=== PATIENT | female | born 1980 | race Hispanic/Latino ===

== ENCOUNTER 2020-01-27 18:39 | Emergency (ER) | payer OTHER ==
[2020-01-27 19:52] LABS: Basophils % 0.9 % (0-1.3); Hematocrit 36.3 % (36.0-45.0); Lymphocytes % 29.7 % (15.3-44.8); MPV 8.6 fL (7.6-11.3); RBC Red Blood Cell Count 4.59 M/uL (3.86-4.86)
[2020-01-27 20:10] LABS: BUN Blood Urea Nitrogen 7 mg/dL (7-18); Bicarbonate 26 mmol/L (21-32); Glucose Level 88 mg/dL (74-106); Potassium 3.6 mmol/L (3.5-5.1); Sodium Level 140 mmol/L (136-145); Troponin (Emerg Dept Use Only) < 0.02 ng/mL (0.0-0.045)
--- NOTE | 2020-01-27 20:10 | RAD REPORT ---
EXAM DESCRIPTION: CT - Head Brain Wo Cont - 01/27/2020 7:49 pm CLINICAL HISTORY: HEADACHE COMPARISON: No comparisons TECHNIQUE: Axial 5 mm thick images of the head were obtained without IV contrast. All CT scans are performed using dose optimization technique as appropriate and may include automated exposure control or mA/KV adjustment according to patient size. FINDINGS: No intracranial hemorrhage, mass, edema or shift of mid-line structures. No acute infarcti on changes seen. No abnormal extra-axial fluid collections. Ventricles are normal. Mastoid air cells and visualized portions of the paranasal sinuses are clear. No acute bony findings. IMPRESSION: Negative non-contrast CT head examination.
--- NOTE | 2020-01-27 20:21 | EDPHYS ---
Physician Documentation [facility] Name: Evangelina Metcalf Age: 39 yrs Sex: Female : 1980 Arrival Date: 01/27/2020 Time: 18:52 Bed 28 Private MD: ED Physician Devan Cartagena HPI: 01/26 19:41 This 39 yrs old Female presents to ER via Ambulatory with complaints of High rn Blood Pressure, Numbness Of Arm, Headache. 19:41 The patient has elevated blood pressure and discovered this at home. Onset: The rn symptoms/episode began/occurred at an unknown time. Modifying factors:. Associated signs and symptoms: Pertinent positives: headache, Pertinent negatives: chest pain, lightheadedness, nausea, visual changes, vomiting, weakness. Severity of symptoms: At its worst the blood pressure was moderate, in the emergency department the blood pressure is improved. It is unknown whether or not the patient has had similar symptoms in the past. Reports just seen by PCP for first time, told BP was high and that her recent headaches likely from BP, given clonidine as emergency medication, pt does not have BP cuff at home, has been taking clonidine when has headache or doesn't feel well. Denies chest pain. + intermittent headache and had 5 min of left arm tingling around elbow so came in for eval. Currently asymptomatic. . 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 - Social history:: Smoking status: Patient denies any tobacco usage or history of. - Family history:: not pertinent. - Hospitalizations: : No recent hospitalization is reported. ROS: 19:41 Constitutional: Negative for fever, chills, and weight loss, Eyes: Negative for injury, rn pain, redness, and discharge, Neck: Negative for injury, pain, and swelling, Cardiovascular: Negative for chest pain, palpitations, and edema, Respiratory: Negative for shortness of breath, cough, wheezing, and pleuritic chest pain, Abdomen/GI: Negative for abdominal pain, nausea, vomiting, diarrhea, and constipation, MS/Extremity: Negative for injury and deformity, Skin: Negative for injury, rash, and discoloration, Neuro: Negative for weakness, and seizure. Exam: 19:41 Constitutional: This is a well developed, well nourished patient who is awake, alert, rn and in no acute distress. Head/Face: Normocephalic, atraumatic. Eyes: Pupils equal round and reactive to light, extra-ocular motions intact. Lids and lashes normal. Conjunctiva and sclera are non-icteric and not injected. Cornea within normal limits. Periorbital areas with no swelling, redness, or edema. Neck: Supple, full range of motion without nuchal rigidity. No Meningismus. Cardiovascular: Regular rate and rhythm. No pulse deficits. Respiratory: Equal bilateral breath sounds. No increased work of breathing, no retractions or nasal flaring. Abdomen/GI: soft, non-tender MS/ Extremity: Pulses equal, no cyanosis. Neurovascular intact. Full, normal range of motion. Equal circumference. Neuro: Awake and alert, GCS 15, oriented to person, place, time, and situation. Cranial nerves II-XII grossly intact. Motor strength 5/5 in all extremities. Sensory grossly intact. Cerebellar exam normal. 20:18 ECG was reviewed by the Attending Physician. rn Vital Signs: 19:00 BP 126 / 93; Pulse 97; Resp 16 S; Temp 98.7(O); Pulse Ox 99% on R/A; Weight 110.22 kg bb (R); Height 5 ft. 0 in. (152.40 cm) (R); Pain 0/10; 19:06 BP 143 / 98; Pulse 87; Resp 14; Pulse Ox 99% on R/A; Pain 3/10; ls4 20:10 BP 144 / 78; Pulse 84; Resp 16; Pulse Ox 99% on R/A; Pain 0/10; ls4 21:10 BP 138 / 84; Pulse 84; Resp 14; Pulse Ox 99% on R/A; ls4 22:10 BP 148 / 98; Pulse 86; Resp 14; Temp 98.6(O); Pulse Ox 99% on R/A; Pain 0/10; ls4 19:00 Body Mass Index 47.46 (110.22 kg, 152.40 cm) bb MDM: 19:12 Patient medically screened. rn 20:18 Differential diagnosis: Malignant HTN. Data reviewed: vital signs, nurses notes, flue dust laborer test result(s), EKG, radiologic studies, CT scan, and as a result, I will discharge patient. Counseling: I had a detailed discussion with the patient and/or guardian regarding: the historical points, exam findings, and any diagnostic results supporting the discharge/admit diagnosis, lab results, radiology results, the need for outpatient follow up, to return to the emergency department if symptoms worsen or persist or if there are any questions or concerns that arise at home. Special discussion: I discussed with the patient/guardian in detail that at this point there is no indication for admission to the hospital. It is understood, however, that if the symptoms persist or worsen the patient needs to return immediately for re-evaluation. Based on the history and exam findings, there is no indication for further emergent testing or inpatient evaluation. I discussed with the patient/guardian the need to see the primary care provider for further evaluation of the symptoms. 20:18 ED course: Recommend BP cuff at home since taking meds without checking numbers and can rn be dangerous. no acute findings on ct head/ECG. Neg trop. . 01/26 19:22 Order name: CBC with Diff; Complete Time: 20:18 rn 01/26 19:22 Order name: Basic Metabolic Panel; Complete Time: 20:18 rn 01/26 19:22 Order name: EKG; Complete Time: 19:23 rn 01/26 19:22 Order name: CT Head Brain wo Cont; Complete Time: 20:18 rn 01/26 19:22 Order name: Troponin (emerg Dept Use Only); Complete Time: 20:18 rn 01/26 19:29 Order name: XRAY Chest (1 view) rn 01/26 19:22 Order name: IV Start; Complete Time: 19:43 rn 01/26 19:22 Order name: EKG - Nurse/Tech; Complete Time: 20:12 rn EC:18 Rate is 83 beats/min. Rhythm is regular. QRS Brady is Normal. ND interval is normal. QRS rn interval is normal. QT interval is normal. No Q waves. T waves are Normal. No ST changes noted. Clinical impression: Normal ECG. Interpreted by me. Reviewed by me. Administered Medications: No medications were administered Disposition: 01/27/20 20:19 Discharged to Home. Impression: Hypertension, Paresthesia of skin. - Condition is Stable. - Discharge Instructions: General Headache Without Cause, Hypertension, Paresthesia. - Medication Reconciliation Form, Thank You Letter, Antibiotic Education, Prescription Opioid Use form. - Follow up: Private Physician; When: As needed; Reason: Recheck today's complaints, Re-evaluation by your physician. - Problem is new. - Symptoms have improved. Signatures: Dispatcher [employer] EDJeimy Wasserman RN RN Devan Araiza MD MD rn Stewart, Lisa, RN RN ls4 Corrections: (The following items were deleted from the chart) 20:57 20:19 01/27/2020 20:19 Discharged to Home. Impression: Hypertension; Paresthesia of ls4 skin. Condition is Stable. Forms are Medication Reconciliation Form, Thank You Letter, Antibiotic Education, Prescription Opioid Use. Follow up: Private Physician; When: As needed; Reason: Recheck today's complaints, Re-evaluation by your physician. Problem is new. Symptoms have improved. rn
--- NOTE | 2020-01-27 20:21 | ER ---
Nurse's Notes [facility] Name: Evangelina Metcalf Age: 39 yrs Sex: Female : 1980 Arrival Date: 01/27/2020 Time: 18:52 Bed 28 Private MD: Diagnosis: Hypertension;Paresthesia of skin Presentation: 01/26 19:00 Chief complaint: Patient states: she has started having high blood pressure readings bb saw her doc on Monday and was told she had to have several high readings before she could be officially diagnosed as having high blood pressure and was given Clonidine 0.1 mg to take as needed which she took today at 1750 tonight she started having a "heavy tingling feeling in my left arm" which is new for her. Coronavirus screen: The patient has NOT traveled to [place] in the past 14 days. Proceed with normal triage procedures. Ebola Screen: No symptoms or risks identified at this time. Initial Sepsis Screen: Does the patient meet any 2 criteria? No. Patient's initial sepsis screen is negative. Does the patient have a suspected source of infection? No. Patient's initial sepsis screen is negative. Risk Assessment: Do you want to hurt yourself or someone else? Patient reports no desire to harm self or others. Onset of symptoms was January 27, 2020. 19:00 Method Of Arrival: Ambulatory bb 19:00 Acuity: JAVON 3 Triage Assessment: 19:04 Headache History: The patient has had previous headaches and this one is similar to bb previous episodes. 19:07 General: Appears in no apparent distress. Behavior is calm, cooperative. Pain: ls4 Complains of pain in top of head and forehead Pain currently is 5 out of 10 on a pain scale. Pain began gradually, Alleviated by medications, Aggravated by Also complains of no other associated symptoms. 19:07 Neuro: Level of Consciousness is awake, alert, obeys commands, Oriented to person, ls4 place, time, situation, Feather Maker are equal bilaterally Moves all extremities. Gait is steady, Speech is normal, Facial symmetry appears normal, Pupils are PERRLA, paresthesias in left arm Reports paresthesias in left arm. Cardiovascular: Denies chest pain, diaphoresis, fatigue, lightheadedness, nausea, palpitations, shortness of breath, syncope, vomiting, Capillary refill < 3 seconds Clubbing of nail beds is absent Patient's skin is warm and dry. Respiratory: No deficits noted. GI: Abdomen is non-distended, obese, Bowel sounds present X 4 quads. Abd is soft and non tender X 4 quads. : No deficits noted. Derm: No deficits noted. Musculoskeletal: No deficits noted. 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 - Social history:: Smoking status: Patient denies any tobacco usage or history of. - Family history:: not pertinent. - Hospitalizations: : No recent hospitalization is reported. Screenin:06 Abuse screen: Denies threats or abuse. Denies injuries from another. Nutritional ls4 screening: No deficits noted. Tuberculosis screening: No symptoms or risk factors identified. Fall Risk None identified. 19:06 VAN Screening: Arm Drift: Patient shows no arm weakness. Patient is VAN negative. ls4 Assessment: 20:00 Reassessment: Patient appears in no apparent distress at this time. No changes from ls4 previously documented assessment. Patient and/or family updated on plan of care and expected duration. Pain level reassessed. Patient is alert, oriented x 3, equal unlabored respirations, skin warm/dry/pink. 21:00 Reassessment: Patient appears in no apparent distress at this time. Patient and/or ls4 family updated on plan of care and expected duration. Pain level reassessed. Patient is alert, oriented x 3, equal unlabored respirations, skin warm/dry/pink. 22:00 Reassessment: Patient appears in no apparent distress at this time. No changes from ls4 previously documented assessment. Patient and/or family updated on plan of care and expected duration. Pain level reassessed. Patient is alert, oriented x 3, equal unlabored respirations, skin warm/dry/pink. Vital Signs: 19:00 BP 126 / 93; Pulse 97; Resp 16 S; Temp 98.7(O); Pulse Ox 99% on R/A; Weight 110.22 kg bb (R); Height 5 ft. 0 in. (152.40 cm) (R); Pain 0/10; 19:06 BP 143 / 98; Pulse 87; Resp 14; Pulse Ox 99% on R/A; Pain 3/10; ls4 20:10 BP 144 / 78; Pulse 84; Resp 16; Pulse Ox 99% on R/A; Pain 0/10; ls4 21:10 BP 138 / 84; Pulse 84; Resp 14; Pulse Ox 99% on R/A; ls4 22:10 BP 148 / 98; Pulse 86; Resp 14; Temp 98.6(O); Pulse Ox 99% on R/A; Pain 0/10; ls4 19:00 Body Mass Index 47.46 (110.22 kg, 152.40 cm) bb ED Course: 18:52 Patient arrived in ED. mr 19:04 Triage completed. bb 19:04 Arm band placed on Patient placed in an exam room, on a stretcher, on pulse oximetry. bb 19:06 Patient has correct armband on for positive identification. Bed in low position. Call ls4 light in reach. Side rails up X 1. ekg monitor tech on. Pulse ox on. NIBP on. Verbal reassurance given. Diet: Patient is NPO. 19:06 No provider procedures requiring assistance completed. ls4 19:12 Devan Cartagena MD is Attending Physician. rn 19:36 Violeta Okeefe, SAMMY is Primary Nurse. ls4 19:43 Initial lab(s) drawn, by wv, sent to lab. Inserted saline lock: 20 gauge in right lt1 antecubital area, using aseptic technique. 19:48 XRAY Chest (1 view) In Process Unspecified. EDMS 19:49 CT Head Brain wo Cont In Process Unspecified. EDMS 20:53 IV discontinued, intact, bleeding controlled, No redness/swelling at site. Pressure ls4 dressing applied. Administered Medications: No medications were administered Outcome: 20:19 Discharge ordered by . rn 20:56 Discharged to home ambulatory, with family. ls4 20:56 Condition: stable 20:56 Discharge instructions given to patient, family, Instructed on discharge instructions, follow up and referral plans. medication usage, Demonstrated understanding of instructions, follow-up care, medications. 20:57 Patient left the ED. ls4 Signatures: Dispatcher [employer] EDCielo Wade mr LulaJeimy, RN RN bb Devan Cartagena MD MD rn Stewart, Lisa, RN RN ls4 Lakisha García RN RN ca1 Sagr[place] lt1 Corrections: (The following items were deleted from the chart) 19:04 18:55 Chief complaint: ca1 bb
--- NOTE | 2020-01-27 20:52 | RAD REPORT ---
EXAM DESCRIPTION: RAD - Chest Single View - 01/27/2020 7:48 pm CLINICAL HISTORY: hypertension, left arm tingling COMPARISON: No comparisons TECHNIQUE: AP portable chest image was obtained 01/27/2020 7:48 pm . FINDINGS: Lungs are underinflated. No peripheral mass or consolidation. Heart and vasculature are no rmal. No measurable pleural effusion and no pneumothorax. No acute bony abnormality seen. No acute ao rtic findings suspected. IMPRESSION: No acute cardiopulmonary process.
[2020-01-27 22:30] VITALS: TEMP 98.7; O2SAT 99
[2020-01-27 22:31] VITALS: BP 143/98
--- NOTE | 2020-01-28 05:55 | EKG ---
Test Date: 2020-01-27 Test Time: 20:08:44 Collections Director: SENIA MEASUREMENT RESULTS: Intervals: Rate: 83 [place]: 154 QRSD: 78 QT: 376 QTc: 441 [place]: P: 32 [place]: 154 QRS: 16 T: 41 INTERPRETIVE STATEMENTS: Normal sinus rhythm Normal ECG No previous ECG available for comparison Electronically Signed On 01-28-20 05:54:34 [employer] by Samy Snowden
== END 2020-01-27 20:57 | disposition home or self-care (01) ==
LOC: ER 18:39
DX: I10 Essential (primary) hypertension (principal); R20.2 Paresthesia of skin
CPT/HCPCS: 36415; 70450; 71045; 80048; 84484; 85025; 93005; 99284

== ENCOUNTER 2023-05-05 21:15 | Emergency (ER) | payer OTHER ==
--- OUTSIDE RECORDS SUMMARY | 2023-05-05 21:18 | XMS REPORT | Continuity of Care Document ---
:1980 Author Organization [facility] t Address [address] [facility] [address] [place] [place] [address] Care Team Providers Name Role Phone Isa Mejía Primary Care Physician KEMI VALENTIN Attending Clinician Unavailable [facility], [facility] Nurse Visit Fadi Attending Clinician UnavailBlanka Cody MD Attending Clinician BLANKA PARIKH Attending Clinician Unavailable Vince Velazquez MD Attending Clinician Doctor Unassigned, [place] Attending Clinician Unavailable SAGRARIO GALEANO Attending Clinician Unavailable SAGRARIO GALEANO Attending Clinician Unavailable ASHWINI JERNIGAN Attending Clinician Unavailable Roya Dahl MD Attending Clinician [phone] Ashwini Jernigan MD Attending Clinician Manju Tillman Attending Clinician Unavailable Kemi Valentin MD Attending Clinician Sanjeev Harding CRNA Attending Clinician Jatin Martinez MD Attending Clinician [phone] Only, Adc Test Attending Clinician Unavailable AINSLEY EDGE Attending Clinician Unavailable Ainsley Edge MD Attending Clinician Gramm Ying PERALES Attending Clinician KEMI VALENTIN Admitting Clinician Unavailable Manju Tillman Admitting Clinician Unavailable Kemi Valentin MD Admitting Clinician Payers Payer Name Policy Type Policy Number Effective Date Expiration Date Denise NICOLAS [id number] 2016 HEALTH 00:00:00 Problems Condition Condition Condition Status Onset Resolution Last Treating Co mments Source Name Details Category Date Date Treatment Clinician Date Anal skin Anal skin Disease Active Overview: [facility] tag tag 3-25 Formattin ity of 00:00: g of this [place] 00 note Medical might be Branch different from the original. Added automatic ally from request for surgery [id number] Morbid Morbid Disease Active [facility] obesity obesity 1-12 [place] of [place] mass index 00 Me dical of of Branch 40.0-49.9 40.0-49.9 Hemorrhoid Hemorrhoid Disease Active 2020-11 Overview : Univers s, s, 1-11 Formattin ity of unspecifie unspecifie 00:00: g of this [place] d d 00 note Medical hemorrhoid hemorrhoid might be Branch type type different from the original. Added automatic ally from request for surgery [id number] Allergies, Adverse Reactions, Alerts Allergy Allergy Status Severity Reaction(s) Onset Inactive Treating Comm ents Source Name Type Date Date Clinician No Known DA Active [facility] [place] NO KNOWN Drug Active Univers ALLERGIE Class ity of S [facility] Social History Social Habit Start Date Stop Date Quantity Comments Source Exposure to 2023-02-24 2023-03-06 Not sure [facility] SARS-CoV-2 00:00:00 10:08:00 [facility] [place] Tobacco use and 2021-10-07 2021-10-07 Smokeless tobacco Un iversity of exposure 00:00:00 00:00:00 non-user [facility] Sex Assigned At [birth year] Universit y of 00:00:00 00:00:00 [facility] Smoking Status Start Date Stop Date Source Never smoked tobacco [facility] Medications Ordered Filled Start Stop Current Ordering Indication Dosage Frequency Signature Comments Components Source Medication Medication Date Date Medication? Clinician (SIG) Name Name hydrocortis 2021-11 Yes [id number] Apply to Univers one 2.5 % 2-21 area(s) 2 ity o f cream 00:00: (two) [place] 00 times Medical daily as Branch needed for Rash. Stop when clear, restart if rash returns. clotrimazol 2021-11 Yes [id number] Apply to Univers e 1 % 2-21 area(s) 2 ity of topical 00:00: (two) [place] cream 00 times Medical daily as Branch needed for Rash. Mix with hydrocorti sone cream in 1:1 ratio. Lactic Acid 2021-11 Yes [id number] Apply to Univers Crea 2-21 area(s) ity of 00:00: daily. Medical Branch hydrocortis 2021-11 Yes [id number] Apply to Univers one 2.5 % 2-21 area(s) 2 ity o f cream 00:00: (two) [place] 00 times Medical daily as Branch needed for Rash. Stop when clear, restart if rash returns. clotrimazol 2021-11 Yes [id number] Apply to Univers e 1 % 2-21 area(s) 2 ity of topical 00:00: (two) [place] cream 00 times Medical daily as Branch needed for Rash. Mix with hydrocorti sone cream in 1:1 ratio. Lactic Acid 2021-11 Yes [id number] Apply to Univers Crea 2-21 area(s) ity of 00:00: daily. Medical Branch hydrocortis 2021-11 Yes [id number] Apply to Univers one 2.5 % 2-21 area(s) 2 ity o f cream 00:00: (two) [place] 00 times Medical daily as Branch needed for Rash. Stop when clear, restart if rash returns. clotrimazol 2021-11 Yes [id number] Apply to Univers e 1 % 2-21 area(s) 2 ity of topical 00:00: (two) [place] cream 00 times Medical daily as Branch needed for Rash. Mix with hydrocorti sone cream in 1:1 ratio. Lactic Acid 2021-11 Yes [id number] Apply to Univers Crea 2-21 area(s) ity of 00:00: daily. Medical Branch hydrocortis 2021-11 Yes [id number] Apply to Univers one 2.5 % 2-21 area(s) 2 ity o f cream 00:00: (two) [place] 00 times Medical daily as Branch needed for Rash. Stop when clear, restart if rash returns. clotrimazol 2021-11 Yes [id number] Apply to Univers e 1 % 2-21 area(s) 2 ity of topical 00:00: (two) [place] cream 00 times Medical daily as Branch needed for Rash. Mix with hydrocorti sone cream in 1:1 ratio. Lactic Acid 2021-11 Yes [id number] Apply to Univers Crea 2-21 area(s) ity of 00:00: daily. Medical Branch hydrocortis 2021-11 Yes [id number] Apply to Univers one 2.5 % 2-21 area(s) 2 ity o f cream 00:00: (two) [place] 00 times Medical daily as Branch needed for Rash. Stop when clear, restart if rash returns. clotrimazol 2021-11 Yes [id number] Apply to Univers e 1 % 2-21 area(s) 2 ity of topical 00:00: (two) [place] cream 00 times Medical daily as Branch needed for Rash. Mix with hydrocorti sone cream in 1:1 ratio. Lactic Acid 2021-11 Yes [id number] Apply to Univers Crea 2-21 area(s) ity of 00:00: daily. Medical Branch hydrocortis 2021-11 Yes [id number] Apply to Univers one 2.5 % 2-21 area(s) 2 ity o f cream 00:00: (two) [place] 00 times Medical daily as Branch needed for Rash. Stop when clear, restart if rash returns. clotrimazol 2021-11 Yes [id number] Apply to Univers e 1 % 2-21 area(s) 2 ity of topical 00:00: (two) [place] cream 00 times Medical daily as Branch needed for Rash. Mix with hydrocorti sone cream in 1:1 ratio. Lactic Acid 2021-11 Yes [id number] Apply to Univers Crea 2-21 area(s) ity of 00:00: daily. Medical Branch hydrocortis 2021-11 Yes [id number] Apply to Univers one 2.5 % 2-21 area(s) 2 ity o f cream 00:00: (two) [place] 00 times Medical daily as Branch needed for Rash. Stop when clear, restart if rash returns. clotrimazol 2021-11 Yes [id number] Apply to Univers e 1 % 2-21 area(s) 2 ity of topical 00:00: (two) [place] cream 00 times Medical daily as Branch needed for Rash. Mix with hydrocorti sone cream in 1:1 ratio. Lactic Acid 2021-11 Yes [id number] Apply to Univers Crea 2-21 area(s) ity of 00:00: daily. Medical Branch hydrocortis 2021-11 Yes [id number] Apply to Univers one 2.5 % 2-21 area(s) 2 ity o f cream 00:00: (two) [place] 00 times Medical daily as Branch needed for Rash. Stop when clear, restart if rash returns. clotrimazol 2021-11 Yes [id number] Apply to Univers e 1 % 2-21 area(s) 2 ity of topical 00:00: (two) [place] cream 00 times Medical daily as Branch needed for Rash. Mix with hydrocorti sone cream in 1:1 ratio. Lactic Acid 2021-11 Yes [id number] Apply to Univers Crea 2-21 area(s) ity of 00:00: daily. Medical Branch hydrocortis 2021-11 Yes [id number] Apply to Univers one 2.5 % 2-21 area(s) 2 ity o f cream 00:00: (two) [place] 00 times Medical daily as Branch needed for Rash. Stop when clear, restart if rash returns. clotrimazol 2021-11 Yes [id number] Apply to Univers e 1 % 2-21 area(s) 2 ity of topical 00:00: (two) [place] cream 00 times Medical daily as Branch needed for Rash. Mix with hydrocorti sone cream in 1:1 ratio. Lactic Acid 2021-11 Yes [id number] Apply to Univers Crea 2-21 area(s) ity of 00:00: daily. Medical Branch losartan 50 Yes losartan Un nila mg tablet 3-30 50 mg ity of 18:00: tablet [place] 53 Take 1 Medical tablet Branch every day by oral route for 30 days. metoprolol Yes metoprolol U nivers succinate 3-30 succinate ity o f XL 25 mg 24 18:00: ER 25 mg [place] hr tablet 53 tablet,ext Medi sandy ended Branch release 24 hr TAKE 1 TABLET EVERY DAY BY ORAL ROUTE FOR 30 DAYS. phentermine Yes phentermin Univers 37.5 mg 3-30 e 37.5 mg ity of tablet 18:00: tablet [place] 53 TAKE 1 Medical TABLET Branch EVERY DAY BY ORAL ROUTE FOR 30 DAYS. traZODone Yes trazodone Uni vers 50 mg 3-30 50 mg ity of tablet 18:00: tablet [place] 53 TAKE 1 Medical TABLET BY Branch MOUTH EVERY DAY losartan 50 0 Yes losartan Un nila mg tablet 3-30 50 mg ity of 18:00: tablet [place] 53 Take 1 Medical tablet Branch every day by oral route for 30 days. metoprolol Yes metoprolol U nivers succinate 3-30 succinate ity o f XL 25 mg 24 18:00: ER 25 mg [place] hr tablet 53 tablet,ext Medi sandy ended Branch release 24 hr TAKE 1 TABLET EVERY DAY BY ORAL ROUTE FOR 30 DAYS. phentermine Yes phentermin Univers 37.5 mg 3-30 e 37.5 mg ity of tablet 18:00: tablet [place] 53 TAKE 1 Medical TABLET Branch EVERY DAY BY ORAL ROUTE FOR 30 DAYS. traZODone Yes trazodone Uni vers 50 mg 3-30 50 mg ity of tablet 18:00: tablet [place] 53 TAKE 1 Medical TABLET BY Branch MOUTH EVERY DAY losartan 50 0 Yes losartan Un nila mg tablet 3-30 50 mg ity of 18:00: tablet [place] 53 Take 1 Medical tablet Branch every day by oral route for 30 days. metoprolol Yes metoprolol U nivers succinate 3-30 succinate ity o f XL 25 mg 24 18:00: ER 25 mg [place] hr tablet 53 tablet,ext Medi sandy ended Branch release 24 hr TAKE 1 TABLET EVERY DAY BY ORAL ROUTE FOR 30 DAYS. phentermine Yes phentermin Univers 37.5 mg 3-30 e 37.5 mg ity of tablet 18:00: tablet [place] 53 TAKE 1 Medical TABLET Branch EVERY DAY BY ORAL ROUTE FOR 30 DAYS. traZODone Yes trazodone Uni vers 50 mg 3-30 50 mg ity of tablet 18:00: tablet [place] 53 TAKE 1 Medical TABLET BY Branch MOUTH EVERY DAY losartan 50 0 Yes losartan Un nila mg tablet 3-30 50 mg ity of 18:00: tablet [place] 53 Take 1 Medical tablet Branch every day by oral route for 30 days. metoprolol Yes metoprolol U nivers succinate 3-30 succinate ity o f XL 25 mg 24 18:00: ER 25 mg [place] hr tablet 53 tablet,ext Medi sandy ended Branch release 24 hr TAKE 1 TABLET EVERY DAY BY ORAL ROUTE FOR 30 DAYS. phentermine Yes phentermin Univers 37.5 mg 3-30 e 37.5 mg ity of tablet 18:00: tablet [place] 53 TAKE 1 Medical TABLET Branch EVERY DAY BY ORAL ROUTE FOR 30 DAYS. traZODone Yes trazodone Uni vers 50 mg 3-30 50 mg ity of tablet 18:00: tablet [place] 53 TAKE 1 Medical TABLET BY Branch MOUTH EVERY DAY losartan 50 Yes losartan Un nila mg tablet 3-30 50 mg ity of 18:00: tablet [place] 53 Take 1 Medical tablet Branch every day by oral route for 30 days. metoprolol Yes metoprolol U nivers succinate 3-30 succinate ity o f XL 25 mg 24 18:00: ER 25 mg [place] hr tablet 53 tablet,ext Medi sandy ended Branch release 24 hr TAKE 1 TABLET EVERY DAY BY ORAL ROUTE FOR 30 DAYS. phentermine Yes phentermin Univers 37.5 mg 3-30 e 37.5 mg ity of tablet 18:00: tablet [place] 53 TAKE 1 Medical TABLET Branch EVERY DAY BY ORAL ROUTE FOR 30 DAYS. traZODone Yes trazodone Uni vers 50 mg 3-30 50 mg ity of tablet 18:00: tablet [place] 53 TAKE 1 Medical TABLET BY Branch MOUTH EVERY DAY losartan 50 Yes losartan Un nila mg tablet 3-30 50 mg ity of 18:00: tablet [place] 53 Take 1 Medical tablet Branch every day by oral route for 30 days. metoprolol Yes metoprolol U nivers succinate 3-30 succinate ity o f XL 25 mg 24 18:00: ER 25 mg [place] hr tablet 53 tablet,ext Medi sandy ended Branch release 24 hr TAKE 1 TABLET EVERY DAY BY ORAL ROUTE FOR 30 DAYS. phentermine Yes phentermin Univers 37.5 mg 3-30 e 37.5 mg ity of tablet 18:00: tablet [place] 53 TAKE 1 Medical TABLET Branch EVERY DAY BY ORAL ROUTE FOR 30 DAYS. traZODone Yes trazodone Uni vers 50 mg 3-30 50 mg ity of tablet 18:00: tablet [place] 53 TAKE 1 Medical TABLET BY Branch MOUTH EVERY DAY losartan 50 0 Yes losartan Un nila mg tablet 3-30 50 mg ity of 18:00: tablet [place] 53 Take 1 Medical tablet Branch every day by oral route for 30 days. metoprolol Yes metoprolol U nivers succinate 3-30 succinate ity o f XL 25 mg 24 18:00: ER 25 mg [place] hr tablet 53 tablet,ext Medi sandy ended Branch release 24 hr TAKE 1 TABLET EVERY DAY BY ORAL ROUTE FOR 30 DAYS. phentermine Yes phentermin Univers 37.5 mg 3-30 e 37.5 mg ity of tablet 18:00: tablet [place] 53 TAKE 1 Medical TABLET Branch EVERY DAY BY ORAL ROUTE FOR 30 DAYS. traZODone Yes trazodone Uni vers 50 mg 3-30 50 mg ity of tablet 18:00: tablet [place] 53 TAKE 1 Medical TABLET BY Branch MOUTH EVERY DAY losartan 50 0 Yes losartan Un nila mg tablet 3-30 50 mg ity of 18:00: tablet [place] 53 Take 1 Medical tablet Branch every day by oral route for 30 days. metoprolol Yes metoprolol U nivers succinate 3-30 succinate ity o f XL 25 mg 24 18:00: ER 25 mg [place] hr tablet 53 tablet,ext Medi sandy ended Branch release 24 hr TAKE 1 TABLET EVERY DAY BY ORAL ROUTE FOR 30 DAYS. phentermine Yes phentermin Univers 37.5 mg 3-30 e 37.5 mg ity of tablet 18:00: tablet [place] 53 TAKE 1 Medical TABLET Branch EVERY DAY BY ORAL ROUTE FOR 30 DAYS. traZODone Yes trazodone Uni vers 50 mg 3-30 50 mg ity of tablet 18:00: tablet [place] 53 TAKE 1 Medical TABLET BY Branch MOUTH EVERY DAY losartan 50 0 Yes losartan Un nil[place] mg tablet 3-30 50 mg ity of 18:00: tablet [place] 53 Take 1 Medical tablet Branch every day by oral route for 30 days. metoprolol 0 Yes metoprolol U nivers succinate 3-30 succinate ity o f XL 25 mg 24 18:00: ER 25 mg [place] hr tablet 53 tablet,ext Medi sandy ended Branch release 24 hr TAKE 1 TABLET EVERY DAY BY ORAL ROUTE FOR 30 DAYS. phentermine Yes phentermin Univers 37.5 mg 3-30 e 37.5 mg ity of tablet 18:00: tablet [place] 53 TAKE 1 Medical TABLET Branch EVERY DAY BY ORAL ROUTE FOR 30 DAYS. traZODone Yes trazodone Uni vers 50 mg 3-30 50 mg ity of tablet 18:00: tablet [place] 53 TAKE 1 Medical TABLET BY Branch MOUTH EVERY DAY losartan 50 0 Yes losartan Un nila mg tablet 3-30 50 mg ity of 18:00: tablet [place] 53 Take 1 Medical tablet Branch every day by oral route for 30 days. metoprolol Yes metoprolol U nivers succinate 3-30 succinate ity o f XL 25 mg 24 18:00: ER 25 mg [place] hr tablet 53 tablet,ext Medi sandy ended Branch release 24 hr TAKE 1 TABLET EVERY DAY BY ORAL ROUTE FOR 30 DAYS. phentermine Yes phentermin Univers 37.5 mg 3-30 e 37.5 mg ity of tablet 18:00: tablet [place] 53 TAKE 1 Medical TABLET Branch EVERY DAY BY ORAL ROUTE FOR 30 DAYS. traZODone Yes trazodone Uni vers 50 mg 3-30 50 mg ity of tablet 18:00: tablet [place] 53 TAKE 1 Medical TABLET BY Branch MOUTH EVERY DAY losartan 50 0 Yes losartan Un nila mg tablet 3-30 50 mg ity of 18:00: tablet [place] 53 Take 1 Medical tablet Branch every day by oral route for 30 days. metoprolol Yes metoprolol U nivers succinate 3-30 succinate ity o f XL 25 mg 24 18:00: ER 25 mg [place] hr tablet 53 tablet,ext Medi sandy ended Branch release 24 hr TAKE 1 TABLET EVERY DAY BY ORAL ROUTE FOR 30 DAYS. phentermine 2022-0 Yes phentermin Univers 37.5 mg 3-30 e 37.5 mg ity of tablet 18:00: tablet [place] 53 TAKE 1 Medical TABLET Branch EVERY DAY BY ORAL ROUTE FOR 30 DAYS. traZODone 2-0 Yes trazodone Uni vers 50 mg 3-30 50 mg ity of tablet 18:00: tablet [place] 53 TAKE 1 Medical TABLET BY Branch MOUTH EVERY DAY ibuprofen 2021-0 Yes [id number] 600mg Take 1 Univers 600 mg 3-30 tablet by ity of tablet 00:00: mouth [place] 00 every 6 Medical (six) Branch hours as needed for Pain (scale 4-6). ibuprofen 2-0 Yes [id number] 600mg Take 1 Univers 600 mg 3-30 tablet by ity of tablet 00:00: mouth [place] 00 every 6 Medical (six) Branch hours as needed for Pain (scale 4-6). ibuprofen 2021-0 Yes [id number] 600mg Take 1 Univers 600 mg 3-30 tablet by ity of tablet 00:00: mouth [place] 00 every 6 Medical (six) Branch hours as needed for Pain (scale 4-6). ibuprofen 2021-0 Yes [id number] 600mg Take 1 Univers 600 mg 3-30 tablet by ity of tablet 00:00: mouth [place] 00 every 6 Medical (six) Branch hours as needed for Pain (scale 4-6). ibuprofen 2021-0 Yes [id number] 600mg Take 1 Univers 600 mg 3-30 tablet by ity of tablet 00:00: mouth [place] 00 every 6 Medical (six) Branch hours as needed for Pain (scale 4-6). ibuprofen 2-0 Yes [id number] 600mg Take 1 Univers 600 mg 3-30 tablet by ity of tablet 00:00: mouth [place] 00 every 6 Medical (six) Branch hours as needed for Pain (scale 4-6). ibuprofen 2-0 Yes [id number] 600mg Take 1 Univers 600 mg 3-30 tablet by ity of tablet 00:00: mouth [place] 00 every 6 Medical (six) Branch hours as needed for Pain (scale 4-6). ibuprofen 2-0 Yes [id number] 600mg Take 1 Univers 600 mg 3-30 tablet by ity of tablet 00:00: mouth [place] 00 every 6 Medical (six) Branch hours as needed for Pain (scale 4-6). ibuprofen 2022-0 Yes [id number] 600mg Take 1 [facility] 600 mg 3-30 tablet by ity of tablet 00:00: mouth [place] 00 every 6 Medical (six) Branch hours as needed for Pain (scale 4-6). ibuprofen 2021-0 Yes [id number] 600mg Take 1 [facility] 600 mg 3-30 tablet by ity of tablet 00:00: mouth [place] 00 every 6 Medical (six) Branch hours as needed for Pain (scale 4-6). ibuprofen 2021-0 Yes [id number] 600mg Take 1 [facility] 600 mg 3-30 tablet by ity of tablet 00:00: mouth [place] 00 every 6 Medical (six) Branch hours as needed for Pain (scale 4-6). acetaminoph 2022- No [id number] 650mg Take 2 Univers en 3-30 03-31 tablets by ity of (TYLENOL) 00:00: 04:59 mouth [place] 325 mg 00 :00 every 6 Medical tablet (six) Branch hours as needed for Pain (scale 1-3). acetaminoph 2022- No [id number] 650mg Take 2 Univers en 3-30 03-31 tablets by ity of (TYLENOL) 00:00: 04:59 mouth [place] 325 mg 00 :00 every 6 Medical tablet (six) Branch hours as needed for Pain (scale 1-3). acetaminoph 2022- No [id number] 650mg Take 2 Univers en 3-30 03-31 tablets by ity of (TYLENOL) 00:00: 04:59 mouth [place] 325 mg 00 :00 every 6 Medical tablet (six) Branch hours as needed for Pain (scale 1-3). acetaminoph 2022- No [id number] 650mg Take 2 Univers en 3-30 03-31 tablets by ity of (TYLENOL) 00:00: 04:59 mouth [place] 325 mg 00 :00 every 6 Medical tablet (six) Branch hours as needed for Pain (scale 1-3). acetaminoph 2022- No [id number] 650mg Take 2 Univers en 3-30 03-31 tablets by ity of (TYLENOL) 00:00: 04:59 mouth [place] 325 mg 00 :00 every 6 Medical tablet (six) Branch hours as needed for Pain (scale 1-3). acetaminoph 2021-0 2022- No [id number] 650mg Take 2 Univers en 3-30 03-31 tablets by ity of (TYLENOL) 00:00: 04:59 mouth [place] 325 mg 00 :00 every 6 Medical tablet (six) Branch hours as needed for Pain (scale 1-3). acetaminoph 2021-0 2022- No [id number] 650mg Take 2 Univers en 3-30 03-31 tablets by ity of (TYLENOL) 00:00: 04:59 mouth [place] 325 mg 00 :00 every 6 Medical tablet (six) Branch hours as needed for Pain (scale 1-3). ibuprofen 2021-0 Yes [id number] 600mg Take 1 U nivers 600 mg 1-04 tablet by ity of tablet 00:00: mouth [place] 00 every 6 Medical (six) Branch hours as needed for Pain (scale 4-6). docusate 2022-0 Yes [id number] 100mg Take 1 Un nila (COLACE) 1-04 capsule by ity o f 100 mg 00:00: mouth 2 [place] capsule 00 (two) Medical times Branch daily. psyllium 2022-0 Yes [id number] 1{packe Take 1 Univers 3.4 gram 1-04 t} Packet by ity of packet 00:00: mouth 2 [place] 00 (two) Medical times Branch daily. ibuprofen 2022-0 Yes [id number] 600mg Take 1 U nivers 600 mg 1-04 tablet by ity of tablet 00:00: mouth [place] 00 every 6 Medical (six) Branch hours as needed for Pain (scale 4-6). docusate 2022-0 Yes [id number] 100mg Take 1 Un nila (COLACE) 1-04 capsule by ity o f 100 mg 00:00: mouth 2 [place] capsule 00 (two) Medical times Branch daily. psyllium 2022-0 Yes [id number] 1{packe Take 1 Univers 3.4 gram 1-04 t} Packet by ity of packet 00:00: mouth 2 [place] 00 (two) Medical times Branch daily. ibuprofen 2022-0 Yes [id number] 600mg Take 1 U nivers 600 mg 1-04 tablet by ity of tablet 00:00: mouth [place] 00 every 6 Medical (six) Branch hours as needed for Pain (scale 4-6). docusate 2022-0 Yes [id number] 100mg Take 1 Un nila (COLACE) 1-04 capsule by ity o f 100 mg 00:00: mouth 2 [place] capsule 00 (two) Medical times Branch daily. psyllium 2022-0 Yes [id number] 1{packe Take 1 Univers 3.4 gram 1-04 t} Packet by ity of packet 00:00: mouth 2 [place] 00 (two) Medical times Branch daily. ibuprofen 2022-0 Yes [id number] 600mg Take 1 U nivers 600 mg 1-04 tablet by ity of tablet 00:00: mouth [place] 00 every 6 Medical (six) Branch hours as needed for Pain (scale 4-6). docusate 2022-0 Yes [id number] 100mg Take 1 Un nila (COLACE) 1-04 capsule by ity o f 100 mg 00:00: mouth 2 [place] capsule 00 (two) Medical times Branch daily. psyllium 2022-0 Yes [id number] 1{packe Take 1 Univers 3.4 gram 1-04 t} Packet by ity of packet 00:00: mouth 2 [place] 00 (two) Medical times Branch daily. ibuprofen 2022-0 Yes [id number] 600mg Take 1 U nivers 600 mg 1-04 tablet by ity of tablet 00:00: mouth [place] 00 every 6 Medical (six) Branch hours as needed for Pain (scale 4-6). docusate 2022-0 Yes [id number] 100mg Take 1 Un nila (COLACE) 1-04 capsule by ity o f 100 mg 00:00: mouth 2 [place] capsule 00 (two) Medical times Branch daily. psyllium 2022-0 Yes [id number] 1{packe Take 1 Univers 3.4 gram 1-04 t} Packet by ity of packet 00:00: mouth 2 [place] 00 (two) Medical times Branch daily. ibuprofen 2022-0 Yes [id number] 600mg Take 1 U nivers 600 mg 1-04 tablet by ity of tablet 00:00: mouth [place] 00 every 6 Medical (six) Branch hours as needed for Pain (scale 4-6). docusate 2022-0 Yes [id number] 100mg Take 1 Un nila (COLACE) 1-04 capsule by ity o f 100 mg 00:00: mouth 2 [place] capsule 00 (two) Medical times Branch daily. psyllium 2022-0 Yes [id number] 1{packe Take 1 Univers 3.4 gram 1-04 t} Packet by ity of packet 00:00: mouth 2 [place] 00 (two) Medical times Branch daily. ibuprofen 2022-0 Yes [id number] 600mg Take 1 U nivers 600 mg 1-04 tablet by ity of tablet 00:00: mouth [place] 00 every 6 Medical (six) Branch hours as needed for Pain (scale 4-6). docusate 2022-0 Yes [id number] 100mg Take 1 Un nila (COLACE) 1-04 capsule by ity o f 100 mg 00:00: mouth 2 [place] capsule 00 (two) Medical times Branch daily. psyllium 2022-0 Yes [id number] 1{packe Take 1 Univers 3.4 gram 1-04 t} Packet by ity of packet 00:00: mouth 2 [place] (two) Medical times Branch daily. ibuprofen 2022-0 Yes [id number] 600mg Take 1 U nivers 600 mg 1-04 tablet by ity of tablet 00:00: mouth [place] 00 every 6 Medical (six) Branch hours as needed for Pain (scale 4-6). docusate 2022-0 Yes [id number] 100mg Take 1 Un nila (COLACE) 1-04 capsule by ity o f 100 mg 00:00: mouth 2 [place] capsule 00 (two) Medical times Branch daily. psyllium 2022-0 Yes [id number] 1{packe Take 1 Univers 3.4 gram 1-04 t} Packet by ity of packet 00:00: mouth 2 [place] 00 (two) Medical times Branch daily. ibuprofen 2022-0 Yes [id number] 600mg Take 1 U nivers 600 mg 1-04 tablet by ity of tablet 00:00: mouth [place] 00 every 6 Medical (six) Branch hours as needed for Pain (scale 4-6). docusate 2022-0 Yes [id number] 100mg Take 1 Un nila (COLACE) 1-04 capsule by ity o f 100 mg 00:00: mouth 2 [place] capsule 00 (two) Medical times Branch daily. psyllium 2022-0 Yes [id number] 1{packe Take 1 Univers 3.4 gram 1-04 t} Packet by ity of packet 00:00: mouth 2 [place] 00 (two) Medical times Branch daily. ibuprofen 2-0 Yes [id number] 600mg Take 1 U nivers 600 mg 1-04 tablet by ity of tablet 00:00: mouth [place] 00 every 6 Medical (six) Branch hours as needed for Pain (scale 4-6). docusate 2022-0 Yes [id number] 100mg Take 1 Un nila (COLACE) 1-04 capsule by ity o f 100 mg 00:00: mouth 2 [place] capsule 00 (two) Medical times Branch daily. psyllium 2022-0 Yes [id number] 1{packe Take 1 Univers 3.4 gram 1-04 t} Packet by ity of packet 00:00: mouth 2 [place] 00 (two) Medical times Branch daily. ibuprofen 2021-0 Yes [id number] 600mg Take 1 U nivers 600 mg 1-04 tablet by ity of tablet 00:00: mouth [place] 00 every 6 Medical (six) Branch hours as needed for Pain (scale 4-6). docusate 2021-0 Yes [id number] 100mg Take 1 Un nila (COLACE) 1-04 capsule by ity o f 100 mg 00:00: mouth 2 [place] capsule 00 (two) Medical times Branch daily. psyllium 2-0 Yes [id number] 1{packe Take 1 Univers 3.4 gram 1-04 t} Packet by ity of packet 00:00: mouth 2 [place] 00 (two) Medical times Branch daily. acetaminoph 2021-0 2022- No [id number] 650mg Take 2 Univers en 1-04 01-05 tablets by ity of (TYLENOL) 00:00: 05:59 mouth [place] 325 mg 00 :00 every 6 Medical tablet (six) Branch hours as needed for Pain (scale 1-3). acetaminoph 2021-0 2022- No [id number] 650mg Take 2 Univers en 1-04 01-05 tablets by ity of (TYLENOL) 00:00: 05:59 mouth [place] 325 mg 00 :00 every 6 Medical tablet (six) Branch hours as needed for Pain (scale 1-3). acetaminoph 2022022- No [id number] 650mg Take 2 Univers en -02 25-05 tablets by ity of (TYLENOL) 00:00: 05:59 mouth [place] 325 mg 00 :00 every 6 Medical tablet (six) Branch hours as needed for Pain (scale 1-3). acetaminoph 2022- No [id number] 650mg Take 2 Univers en -02 25-05 tablets by ity of (TYLENOL) 00:00: 05:59 mouth [place] 325 mg 00 :00 every 6 Medical tablet (six) Branch hours as needed for Pain (scale 1-3). acetaminoph 2022- No [id number] 650mg Take 2 Univers en 11-30-05 tablets by ity of (TYLENOL) 00:00: 05:59 mouth [place] 325 mg 00 :00 every 6 Medical tablet (six) Branch hours as needed for Pain (scale 1-3). Vital Signs Vital Name Observation Time Observation Value Comments Source Systolic blood 2022-04-14 16:04:00 111 mm[Hg] [facility]iver [facility] Diastolic blood 2022-04-14 16:04:00 74 [facility]Hg[facility] 2022-04-14 16:04:00 74 /min [facility] Body temperature 2022-04-14 16:04:00 36.61 Myesha [facility] Body weight 2022-04-14 16:04:00 109.589 kg [facility] BMI 2022-04-14 16:04:00 47.18 kg/m2 [facility] Oxygen saturation in 2022-04-14 16:04:00 98 /min [facility] Arterial blood by [facility] Pulse oximetry Branch Procedures Procedure Date / Time Performed Performing Clinician [facility] nakul [facility] PATIENT 2023-02-27 15:10:11 Doctor Unassigned, No [facility] [place] FINANCIAL POLICY Name Medical Branch REFERRAL- 2022-09-20 05:01:00 Doctor Unassigned, No [facility] [place] REQUEST/RESPONSE Name Medical Branch Encounters Start End Encounter Admission Attending Care Care Encounter Source Date/Time Date/Time Type Type Clinicians Facility Department ID 2022-02-18 Outpatient Dannielle VALENTIN [facility] KAYLA [id number] Univers 10:55:56 KEMI randle [facility] [place] 2023-03-06 2023-03-06 Nurse Jason Flores Nurse Visit Fadi [facility] 1.2.840.114 [id number] Univers 10:30:00 10:45:00 Visit Blanka Parikh MULTISPEC 350.1.13.1 0 [place] [id number] [address] [facility] 2023-03-06 2023-03-06 Outpatient R MEGHAN [facility] [id number] Univers 10:30:00 10:30:00 BLANKA randle [facility] [place] 2023-02-27 2023-02-27 [facility] [id number] Univers 10:30:00 11:20:07 BLANKA randle [facility] [place] 2023-02-27 2023-02-27 Office Vince Velazquez [facility] 1.2.840.114 [id number] Univers 10:30:00 11:20:07 Visit Blanka Parikh MULTISPEC 350.1.13.1 0 ity of [place] 4.2.7.2.686 [facility] [place] [id number] [address] [facility] 2023-02-27 2023-02-27 Orders Doctor SAMUEL 1..840.114 [id number] Univers 00:00:00 00:00:00 Only Unassigned, JEREMY 350.1.13.10 ity of [place] [facility] 4.2.7.2.686 Rafael [id number] [place] [address] Branch 2023-01-03 2023-01-03 Outpatient R SAGRARIO GALEANO [facility] [id number] Univers 10:40:00 10:47:05 SAGRARIO GALEANO [facility] [place] 2023-01-03 2023-01-03 Office Sagrario Galeano [facility] 1.2.840.114 [id number] Univers 10:40:00 10:47:05 Visit MULTISPEC 350.1.13.10 ity of [place] 4.2.7.2.686 [facility] [id number] [address] [facility] 2022-11-16 2022-11-16 Outpatient R DELON [facility] [id number] Univers 10:30:00 14:40:36 ASHWINI randle o f [facility] 2022-11-16 2022-11-16 Office Nabila Roya Michelle SANCHEZ 1.2.840.114 [id number] Univers 10:30:00 14:40:36 Visit Ashwini Jernigan [facility] 350.1.13.10 ity of [facility] [place] [id number] [facility] 027 Branch 2022-09-20 2022-09-20 Orders Doctor LIZZIE 1.2.840.114 [id number] Univers 00:00:00 00:00:00 Only Unassigned, JEREMY 350.1.13.10 ity of [facility] 4.2.7.2.686 Rafael as [id number] [facility] 009 Branch 2022-07-15 2022-07-15 [id number] 09:25:00 09:25:00 [place] [address] [facility] 2022-04-14 2022-04-14 Outpatient Dannielle VALENTIN [facility] [id number] Univers 10:45:00 11:09:26 KEMI randle [facility] [place] 2022-04-14 2022-04-14 Office [facility] 1.2.106.572 [id number] Univers 10:45:00 11:09:26 Visit Kemi ART 350.1.13.10 i ty [facility] [place] [id number] Id dical [address] 2022-03-24 2022-03-24 Outpatient Dannielle VALENTIN [facility] [id number] Univers 11:30:00 11:30:00 KEMI randle [facility] [place] 2022-02-23 2022-02-23 Outpatient Dannielle VALENTIN [facility] KAYLA [id number] Univers 12:30:00 18:00:00 KEMI randle [facility] [place] 2022-02-23 2022-02-23 [place] 1.2.840.114 [id number] Univers 12:30:00 18:00:00 Encounter Kemi ART 350.1.13.10 [place] of [place] [id number] [facility] 071 Branch 2022-02-23 2022-02-23 Anesthesia Sanjeev Harding [facility] 1.2.840.11 [id number] Univers 15:33:00 16:42:00 Event Juan Jatin ALYSSATYREE 35 0.1.13.10 ity of [place] [id number] [facility] [address] [place] 2022-02-23 2022-02-23 Surgery [facility] 1.2.227.219 [id number] Univers 14:40:00 16:15:00 Kemi ART 350.1.13.10 i ty [address] [facility] 4.[place] [id number] [facility] [address] [place] 2022-02-21 2022-02-21 Laboratory Only, Adc Test [facility] 1.2.840. 114 [id number] Univers 08:30:00 08:45:00 Only Kemi Valentin 350.1.13.10 [place] [id number] [address] 2022-02-21 2022-02-21 Outpatient R MYKE [facility] [id number] Univers 08:30:00 08:30:00 KEMI randle of [facility] 2022-02-17 2022-02-17 [facility] 1.2.561.490 [id number] Univers 11:30:00 11:49:18 Visit Kemi ART 350.1.13.10 i ty [place] [id number] [address] 2022-02-17 2022-02-17 Outpatient R MYKE [facility] [id number] Univers 11:30:00 11:49:18 KEMI randle [facility] [place] 2022-02-17 2022-02-17 [facility] [id number] Univers 11:30:00 11:49:18 KEMI randle [facility] [place] 2022-02-17 2022-02-17 Outpatient [facility] [id number] Univers 11:30:00 11:30:00 KEMI randle [facility] [place] 2021-12-23 2021-12-23 [facility] [id number] Univers 13:30:00 14:09:58 AINSLEY randle [facility] [place] 2021-12-23 2021-12-23 [facility] 1.2.840.114 [id number] Univers 13:30:00 14:09:58 Visit Ainsley SHAHTYREE 350.1.13.10 i ty [place] [id number] Id dical [address] 2021-12-23 2021-12-23 Outpatient R [facility] [id number] Univers 11:30:00 11:30:00 KEMI randle [facility] [place] 2021-11-30 2021-11-30 [facility] KAYLA [id number] Univers 06:48:00 11:13:00 KEMI randle [facility] [place] 2021-11-30 2021-11-30 [facility] 1.2.840.114 [id number] Univers 06:48:00 11:13:00 Encounter Kemi KAELYN 350.1.13.10 it[place] [id number] [facility] 071 Branch 2021-11-30 2021-11-30 Surgery [facility] 1.2.307.772 [id number] Univers 07:30:00 09:40:00 Kemi ART 350.1.13.10 i ty [place] [id number] [facility] 020 Branch 2021-11-29 2021-11-29 Laboratory Only, Adc Test [facility] 1.2.840. 114 [id number] Univers 11:15:00 11:30:00 Only Kemi Valentin 350.1.13.10 ity [place] [id number] [facility] [address] 2021-11-29 2021-11-29 Outpatient [facility] [id number] Univers 11:15:00 11:15:00 KEMI randle [facility] [place] 2021-11-29 2021-11-29 Orders Doctor LIZZIE 1.2.840.114 [id number] Univers 00:00:00 00:00:00 Only Unassigned, JEREMY 350.1.13.10 ity of [facility] 4.2.7.2.686 [place] as [id number] [facility] [address] [place] 2021-10-07 2021-10-07 Office Valentin [facility] 1.2.073.800 [id number] Univers 14:28:05 14:56:08 Visit Kemi ART 350.1.13.10 i ty [facility] [place] [id number] Id dical NAL 188 [facility] 2021-10-07 2021-10-07 Outpatient R MYKE [facility] [id number] Univers 14:00:00 14:56:08 KEMI michelle [facility] [place] 2021-10-07 2021-10-07 Prep For Andrew [facility] 1.2.840.114 [id number] Univers 00:00:00 00:00:00 Surgery Ying SHAHTYREE 350.1.13.10 ity [facility] [place]2.[place] [id number] Id dical NAL 204 [facility] Results Test Description Test Time Test Comments Results Result Comments Source UR HCG QUAL 2022-07-13 16:19:00 Test Item Value Reference Range Interpretation Comme nts UR HCG QUAL (test code = HCGQLU) NEGATIVE 1. Very dilute urine specimens, as indicated by a lowspecific gravity, may not contain rep resentative levels ofhCG. 2. False negative results may occur when the levels of hCGare below the sensitivity level of the test. If is st ill suspected, a first morningurine sp ecimen should be collected 48 ho urs later andtested. BASIC METABOLIC [id number] 15:55:00 Test Item Value Reference Range Interpretation Comments SODIUM (test code = NA) 142 mEq/L 135-145 N POTASSIUM (test code = K) 4.1 mEq/L 3.5-5.0 N CHLORIDE (test code = CL) 107 mEq/L 100-115 N CARBON DIOXIDE (test code = CO2) 23 mEq/L 22-31 N ANION GAP (test code = GAP) 15.90 10-20 N GLUCOSE (test code = GLU) 83 mg/dL 65-110 N BLOOD UREA NITROGEN (test code = 13 mg/dL 7-18 N BUN) GLOMERULAR FILTRATION RATE (test 135 ml/min >60 N code = GFR) CREATININE (test code = CREAT) 0.5 mg/dL 0.5-1.0 N CALCIUM (test code = CA) 8.5 mg/dL 8.4-10.2 N CBC W/AUTO [id number] 15:40:00 Test Item Value Reference Range Interpretation Comments WHITE BLOOD CELL (test code = WBC) 10.1 K/mm3 6.5-12.3 N RED BLOOD CELL (test code = RBC) 4.65 M/mm3 3.51-4.69 N HEMOGLOBIN (test code = HGB) 11.7 g/dL 10.1-13.8 N HEMATOCRIT (test code = HCT) 38.3 % 32.5-41.8 N MEAN CELL VOLUME (test code = MCV) 82.4 fL 84.6-96.6 L MEAN CELL HGB (test code = MCH) 25.2 pg 27.3-33.9 L MEAN CELL HGB CONCETRATION (test 30.5 gm/dL 32.0-34.2 L code = MCHC) RED CELL DISTRIBUTION WIDTH (test 16.0 % 12.2-16.3 N code = RDW) PLATELET COUNT (test code = PLT) 361 K/mm3 134-363 N MEAN PLATELET VOLUME (test code = 11.1 fL 9.2-12.7 N MPV) NEUTROPHIL % (test code = NT%) 67.4 % 57.9-77.3 N LYMPHOCYTE % (test code = LY%) 24.4 % 14.5-29.7 N MONOCYTE % (test code = MO%) 6.1 % 3.6-10.2 N EOSINOPHIL % (test code = EO%) 1.3 % 0.0-3.0 N BASOPHIL % (test code = BA%) 0.5 % 0.1-0.9 N NEUTROPHIL # (test code = NT#) 6.8 K/mm3 LYMPHOCYTE # (test code = LY#) 2.5 K/mm3 MONOCYTE # (test code = MO#) 0.6 K/mm3 EOSINOPHIL # (test code = EO#) 0.13 K/mm3 BASOPHIL # (test code = BA#) 0.1 K/mm3 RBC MORPHOLOGY REQUIRED (test code NORMAL NORMAL = RBCM) PLATELET MORPHOLOGY REQUIRED (test NORMAL NORMAL code = PLTMR) COVID 19 Asymptomatic IH [id number] 13:02:00 Test Item Value Reference Range Interpretation Comments COVID 19 NEGATIVE NEGATIVE This test has b een Asymptomatic IH AG authorize d only for the (test code = detection ofpro teins from COVNONPUIAG) SARS-CoV-2, not for any other viruses orpathogens. Ne gative results should be treated as presumptive andconfirmed wi th a molecular assay , if necessary for patientmanageme nt. Negative result s do not rule out COVID- 19 andshould not b e used as the sole basis for treatment orpat ient management deci sions, including infec tion controldecision s. Negative result s should be considered i n thecontext of a patient's recent exposure s, history and thepresence of clinical signs and symptoms consis tent withCOVID-19. T his test has not been FD A cleared or approved; th e test hasbeen authori zed by FDA under an Emerge ncy Use Authorization(E UA) for use by edin portillo certified under the CLIA thatmeet the re quirements to perform mode rate, high or waivedcomple xity tests. This melanie t is authorized for use at thePoint of Car e (POC), i.e., in patien t care settingsoperati ng under a CLIA Certificat e of Waiver, Certifi tish ofCompliance, o r Certificate of Accreditation. This test is only authori catherine for the duration of thedeclaration that circumstances e xist justifying theauthorizatio n of emergency use o f in vitro diagnostic test sfor detection and/o r diagnosis of CO VID-19 under Scdokzn79 4(b)(1) of the Act, 21 U.S .C. 360bbb-3(b)(1), unless theauthorizatio n is terminated or r evoked sooner. Notes Date/Time Note Provider Source 2022-07-15 13:16:00-00:00 [facility] ([facility]) full op note report#:[id number] report status: signed date:07/15/22 time: 131 patient: travis mota unit #: [id number] room/bed: : 80 age: 42 sex: f attend: keyur tillman md adm dt: 07/15/22 author: manju tillman md * all edits or amendments must be made on the [employer]/computer document * operative report start date: 07/15/22 start time: 1200 pre-procedure diagnosis: bilateral venous insufficiency right leg varicose veins with pain post-procedure diagnosis: bilateral venous insufficiency right leg varicose veins with pain procedures performed: 1. bilateral gsv radiofrequency ablation 2. right leg stab phlebectomy (<20) technique/procedure: see below primary surgeon: dr. manju tillman special education assistant(s): dr. cruz anesthesia: general anesthesia operative findings: right leg varicosities complications: none estimated blood loss in ml's: 10 cc specimens removed/altered: none implant(s): none free text op notes free text op notes: the patient was brought to the operating room, p laced in the supine position, and intubated by the anesthesia team. preoperati ve antibiotics were administered. the legs and groin were prepped an d draped in the usual sterile fashion. a preprocedure timeout was performed. ultrasound-guided access of the right gr eat saphenous vein was obtained at the mid-calf using a micropunctu re needle and 0.018 in wire. a maegan was made at the puncture site, and a 7-tamazight sheath was placed over the wire into the right great saphenous vein. the rf catheter introduced through the sheath. under ultrasound guidance, the rf ablation catheter was brought to the saphenofemoral junction and pulled back 3 cm. tumescent anesthesia was infiltrated around the right great saphenous vein, creating a 1 cm halo around the vein. rf ablation of the right great saphenous vein was completed in the usual fashion. ultrasound-guided access of the left great saphe nous vein was obtained at the mid-calf using a micropunctu re needle and 0.018 in wire. a maegan was made at the puncture site, and a 7-tamazight sheath was placed over the wire into the left great saphenous vein. the rf catheter introduced through the sheath. under ultrasound guidance, the rf ablation catheter was brought to the saphenofemoral junction and pulled back 3 cm. tumescent anesthesia was infiltrated around the left great saphenous vein, c reating a 1 cm halo around the vein. rf ablation of the left great saphenous vein was completed in t he usual fashion. large varicosities in the [facility] lateral calf down had been marked preprocedure. these were phlebectomized us ing standard phlebectomy technique and hemostats as well as phlebectomy hook. once the phlebectomy w as completed, all phlebectomy sites were closed with steri-strips. a compressi on bandage was placed on the foot to the high thigh bilateally. the patient was then awakened, extubated, and br ought to recovery in stable condition. all the sponge, lap, and instrument c ounts were correct at the conclusion of the procedure. electronically signed by manju tillman md on 07/15/22 at 1320 [facility] #:[id number] end of report 2022-07-13 12:50:00-00:00 [id number] [facility] [address] [place], [place] [address] PATIENT NAME: TRAVIS MOTA ADMIT DATE: ACCOUNT NO: [id number] ROOM NO: AGE: 42 SEX: F ADMITTING PHYSICIAN: ATTENDING PHYSICIAN: Manju Tillman MD Order: [id number] Test Reason : PRE- OP Test Date/Time Stamp: MonJul 13 2022 12:50:18 Blood Pressure : / mmHG Vent. Rate : 074 BPM Atrial Rate : 074 BPM P-R Int : 136 ms QRS Dur : 076 ms QT Int : 404 ms P-R-T Axes : 019 014 039 degree s QTc Int : 448 ms Normal sinus rhythm Normal ECG No previous ECGs available Confirmed by MAINE ALVARES ([id number]) on 022 6:05:14 PM Referred By: Manju Tillman Confirmed by:MAURY ALVARES at 1805 PATIENT NAME: TRAVIS MOTA ACCOUNT #: [id number]
[2023-05-05] MEDS ORDERED: KETOROLAC 30 MG/ML INJ ONE (21:38)
[2023-05-05] MEDS ORDERED: ONDANSETRON 4 MG (ODT) TAB ONE (21:39)
--- NOTE | 2023-05-05 22:35 | RAD REPORT ---
EXAM DESCRIPTION: RAD - Shoulder Right 2 View - 05/05/2023 10:13 pm CLINICAL HISTORY: Right shoulder pain FINDINGS: No fracture or dislocation is seen. No significant bone or joint abnormality noted
--- NOTE | 2023-05-05 22:37 | RAD REPORT ---
EXAM DESCRIPTION: RAD - Hip Right 2 View - 05/05/2023 10:13 pm CLINICAL HISTORY: Right hip pain FINDINGS: No fracture or dislocation is seen. Mild osteoarthritis If the patient has experienced trauma and continues to have symptoms of an occult fracture then MRI w ould be recommended 3.3 centimeter calcification left pelvis may represent a calcified uterine fibroid or adnexal mass. P elvic ultrasound recommended
--- NOTE | 2023-05-05 22:53 | EDPHYS ---
Physician Documentation [facility] Name: Evangelina Metcalf Age: 42 yrs Sex: Female : 1980 Arrival Date: 05/05/2023 Time: 21:15 Bed 15 Private MD: ED Physician Pollo Loving HPI: 05/05 21:27 This 42 yrs old Female presents to ER via EMS with complaints of Fall Injury. bs3 21:27 42-year-old female history of hypertension, morbid obesity presents with right shoulder bs3 and right hip pain she was walking in [employer] when she slipped and fell landing on her right side of her body she denies head injury loss of consciousness no numbness tingling or weakness she was able to walk afterwards and take a few steps her pain is moderate intensity since the pain got bad she does have associated nausea but no vomiting no chest pain no shortness of breath no abdominal pain. 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 - Social history:: Smoking status: Patient denies any tobacco usage or history of. ROS: 21:27 Constitutional: Negative for fever, chills bs3 21:27 All other systems are negative. Exam: 21:27 Constitutional: This is a well developed, well nourished patient who is awake, alert, bs3 and in no acute distress. Head/Face: Normocephalic, atraumatic. Eyes: Pupils equal round and reactive to light, extra-ocular motions intact. Lids and lashes normal. ENT: mmm, no posterior phyarngeal erythema Neck: Trachea midline, no thyromegaly, no neck stiffness Chest/axilla: Normal chest wall appearance and motion. Nontender with no deformity. No lesions are appreciated. Cardiovascular: Regular rate and rhythm with a normal S1 and S2. symmetric pulses in upper extremities Respiratory: Lungs have equal breath sounds bilaterally, clear to auscultation, no respiratory distress Abdomen/GI: Soft, non-tender, no rebound or guarding Back: No spinal tenderness. No costovertebral tenderness. Full range of motion. Skin: Warm, dry with normal turgor. Normal color with no rashes, no lesions, and no evidence of cellulitis. MS/ Extremity: She has tenderness over her right AC joint no significant effusion full range of motion passively she has mild pain to palpation of her right hip she has pain in the posterior upper part of her right leg when lifting it off the bed she has no pain with logrolling or axial loading Vital Signs: 21:17 BP 133 / 84; Pulse 104; Resp 16; Temp 97.9(O); Pulse Ox 99% ; Weight 110.22 kg; Height kd3 5 ft. 0 in. ; 21:52 BP 120 / 85; Pulse 111; Resp 16; Pulse Ox 100% on R/A; kd3 22:54 BP 114 / 88; Pulse 106; Resp 19; Pulse Ox 100% on R/A; kd3 21:17 Body Mass Index 47.46 (110.22 kg, 152.4 cm) kd3 MDM: 21:20 Patient medically screened. bs3 21:27 Data reviewed: vital signs, nurses notes. ED course: Possible AC joint separation less bs3 likely to be dislocation or fracture possible hip contusion doubt fracture will treat pain will get x-rays and reassess. 22:51 Independent interpretation of the following test(s) in the Emergency Department X-Ray: bs3 My interpretation is No acute fracture or dislocation. 22:52 ED course: CT negative for acute pathology there is a cystic structure in her left bs3 pelvis not consistent with her trauma advised outpatient follow-up with primary care possible ultrasound for more clarification return per cautions given patient given copy of her x-ray report. 05/05 21:25 Order name: Shoulder Right (2 View) XRAY; Complete Time: 22:51 bs3 05/05 21:25 Order name: Hip Right 2 View XRAY; Complete Time: 22:51 bs3 Administered Medications: 21:52 Drug: Ondansetron PO 8 mg Route: PO; kd3 22:55 Follow up: Response: No adverse reaction; Nausea is decreased kd3 21:52 Drug: Ketorolac IM 30 mg Route: IM; Site: right deltoid; kd3 22:55 Follow up: Response: No adverse reaction; Pain is decreased kd3 Disposition Summary: 05/05/23 22:53 Discharge Ordered Location: Home bs3 Problem: new bs3 Symptoms: have improved bs3 Condition: Stable bs3 Diagnosis - Pain in hip bs3 - Contusion of shoulder bs3 Followup: bs3 - With: Private Physician - When: 1 week - Reason: Re-evaluation by your physician Discharge Instructions: - Discharge Summary Sheet bs3 - Contusion, [id number] bs3 Forms: - Family Work Release ds4 - Medication Reconciliation Form bs3 - Thank You Letter bs3 - Antibiotic Education bs3 - Prescription Opioid Use bs3 Signatures: Dispatcher [employer] Liz Reese RN RN kd3 Pollo Loving MD MD bs3
--- NOTE | 2023-05-05 22:53 | ER ---
Nurse's Notes [facility] Name: Evangelina Metcalf Age: 42 yrs Sex: Female : 1980 Arrival Date: 05/05/2023 Time: 21:15 Bed 15 Private MD: Diagnosis: Pain in hip;Contusion of shoulder Presentation: 05/05 21:17 Chief complaint: EMS states: She was shopping at [employer] and slipped and fell on the wet kd3 floor. She fell to the right side and is complaining of right hip and right shoulder pain. She started getting nauseous prior to putting her in the ambulance but has not vomited. She did not hit her head or loose consciousness. She is not on blood thinners. Coronavirus screen: Vaccine status: Patient reports being unvaccinated. Ebola Screen: No symptoms or risks identified at this time. Initial Sepsis Screen: Does the patient meet any 2 criteria? No. Patient's initial sepsis screen is negative. Does the patient have a suspected source of infection? No. Patient's initial sepsis screen is negative. Risk Assessment: Do you want to hurt yourself or someone else? Patient reports no desire to harm self or others. Onset of symptoms was May 05, 2023. 21:17 Method Of Arrival: EMS: [facility] kd3 21:17 Acuity: JAVON 3 kd3 Triage Assessment: 21:21 General: Appears uncomfortable, Behavior is calm, cooperative. Pain: Complains of pain kd3 in anterior aspect of right shoulder. 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 - Social history:: Smoking status: Patient denies any tobacco usage or history of. Screenin:53 [facility] ED Fall Risk Assessment (Adult) History of falling in the last 3 months, kd3 including since admission Yes- single mechanical fall (1 pt) Confusion or Disorientation No (0 pts) Intoxicated or Sedated No (0 pts) Impaired Gait No (0 pts) Mobility Assist Device Used No (0 pt) Altered Elimination No (0 pt) Score/Fall Risk Level 0 - 2 = Low Risk Maintained a safe environment. Abuse screen: Denies threats or abuse. Denies injuries from another. Nutritional screening: No deficits noted. Tuberculosis screening: No symptoms or risk factors identified. Assessment: 21:53 General: Appears uncomfortable, Behavior is calm, cooperative. Pain: Complains of pain kd3 in right hip and right arm and anterior aspect of right shoulder. Neuro: Level of Consciousness is awake, alert, obeys commands, Oriented to person, place, time, situation. Respiratory: Airway is patent Trachea midline Respiratory effort is even, unlabored, Respiratory pattern is regular, symmetrical. Vital Signs: 21:17 BP 133 / 84; Pulse 104; Resp 16; Temp 97.9(O); Pulse Ox 99% ; Weight 110.22 kg; Height kd3 5 ft. 0 in. ; 21:52 BP 120 / 85; Pulse 111; Resp 16; Pulse Ox 100% on R/A; kd3 22:54 BP 114 / 88; Pulse 106; Resp 19; Pulse Ox 100% on R/A; kd3 21:17 Body Mass Index 47.46 (110.22 kg, 152.4 cm) kd3 ED Course: 21:16 Patient arrived in ED. kd3 21:20 Pollo Loving MD is Attending Physician. bs3 21:21 Triage completed. kd3 21:21 Arm band placed on left wrist. kd3 21:52 Liz Blanca, SAMMY is Primary Nurse. kd3 22:14 Shoulder Right (2 View) XRAY In Process Unspecified. EDMS 22:14 Hip Right 2 View XRAY In Process Unspecified. EDMS 23:22 Patient has correct armband on for positive identification. kd3 23:22 No provider procedures requiring assistance completed. Patient did not have IV access kd3 during this emergency room visit. Administered Medications: 21:52 Drug: Ondansetron PO 8 mg Route: PO; kd3 22:55 Follow up: Response: No adverse reaction; Nausea is decreased kd3 21:52 Drug: Ketorolac IM 30 mg Route: IM; Site: right deltoid; kd3 22:55 Follow up: Response: No adverse reaction; Pain is decreased kd3 Medication: 23:22 VIS not applicable for this client. kd3 Outcome: 22:53 Discharge ordered by . bs3 23:22 Discharged to home via wheelchair, with family. kd3 23:22 Condition: stable 23:22 Discharge instructions given to patient, family, Instructed on discharge instructions, follow up and referral plans. Demonstrated understanding of instructions, follow-up care. 23:23 Patient left the ED. kd3 Signatures: Dispatcher [employer] Liz Reese RN RN kd3 Pollo Loving MD MD bs3
[2023-05-06 00:23] VITALS: TEMP 97.9
[2023-05-06 00:24] VITALS: O2SAT 100
[2023-05-06 00:25] VITALS: BP 114/88
== END 2023-05-05 23:23 | disposition home or self-care (01) ==
LOC: ER 21:15
DX: S40.011A Contusion of right shoulder, initial encounter (principal); M25.551 Pain in right hip; I10 Essential (primary) hypertension
CPT/HCPCS: 73502; 73030; 96372; 99284; Q0162